=== PATIENT | male | born 1990 | race Caucasian/White ===

== ENCOUNTER → 2018-02-19 16:06 | Outpatient (CLI) | payer BC, SELFPAY ==
[2018-02-20 10:27] LABS: Alkaline Phosphatase 59 U/L (46-116); Blood Urea Nitrogen 15 mg/dL (7-18); HDL Cholesterol 27 mg/dL (27-67)
[2018-02-20 10:32] LABS: Basophils # 0.1 K/mm3 (0-0.2); Basophils % 0.6 % (0.1-2.0); Eosinophils # 0.1 K/mm3 (0.0-0.4); Eosinophils % 1.6 % (0.1-12.0); Hemoglobin 15.8 g/dL (14.1-18.0); Lymphocytes # 2.9 K/mm3 (0.7-4.5); Lymphocytes % 32.6 % (10-50); Mean Corpuscular HGB Conc 32.2 g/dL (31.8-35.4); Mean Corpuscular Hemoglobin 29.1 pg (27.0-31.2); Mean Corpuscular Volume 90.3 fl (80-94); Mean Platelet Volume 9.3 fl (7.4-10.4); Monocytes # 0.5 K/mm3 (0.1-1.0); Monocytes % 5.6 % (1.7-9.3); Neutrophils # 5.3 K/mm3 (1.8-7.8); Neutrophils % 59.6 % (37.0-80.0); Platelet Count 317 K/mm3 (142-424); Red Blood Count 5.42 M/mm3 (4.60-6.20); Red Cell Distribution Width 13.7 % (11.5-17.5); White Blood Count 8.9 K/mm3 (4.8-10.8)
[2018-02-20 11:04] LABS: Alanine Aminotransferase 95 U/L (12-78); Albumin Level 4.1 gm/dL (3.4-5.0); Albumin/Globulin Ratio 1.1 (1.1-1.8); Anion Gap 15.1 mEq/L (5-15); Bilirubin,Total 0.3 mg/dL (0.2-1.0); Carbon Dioxide 28 mmol/L (21.0-32.0); Chloride 101 mmol/L (98-107); Chol/HDL Ratio 9.1 (1-3.5); Cholesterol 246 mg/dL (140-200); Creatinine,Serum 1.03 mg/dL (0.70-1.30); Estimated Glomerular Filt Rate 85 ml/min (>60); GFR (African American) 103 ML/MIN (>60); Globulin 3.6 gm/dl (1.3-3.2); Glucose 93 mg/dL (74-106); Potassium 5.1 mmoL/L (3.5-5.1); Sodium 139 mmol/L (136-145); T4 (Thyroxine) 5.3 ug/dl (4.7-13.3); Thyroid Stimulating Hormone 1.42 uIU/ml (0.358-3.740); Total Protein,Serum 7.7 gm/dL (6.4-8.2)
[2018-02-20 11:22] LABS: Aspartate Amino Transferase 33 U/L (15-37)
[2018-02-20 11:28] LABS: Triglycerides 690 mg/dL (30-200)
== END ==
PROVIDERS: Visit Provider Nurse Practitioner Family
DX: H92.09 Otalgia, unspecified ear (principal)
CPT/HCPCS: 80053; 80061; 84436; 84443; 85025

== ENCOUNTER → 2018-03-22 16:13 | Outpatient (CLI) | payer BC, SELFPAY ==
[2018-03-22 17:49] LABS: Chol/HDL Ratio 5.7 (1-3.5); Cholesterol 234 mg/dL (140-200); HDL Cholesterol 41 mg/dL (27-67); LDL Cholesterol 178 mg/dL (0-130); Triglycerides 75 mg/dL (30-200); VLDL Cholesterol 15 mg/dL (0-40)
[2018-03-22 19:43] LABS: Hemoglobin A1C 5.5 % (0.0-7.0)
[2018-03-24 07:20] LABS: Hep A Ab, IgM Negative (Negative); Hepatitis B Core Antibody IgM Negative (Negative); Hepatitis B Surface Antigen Negative (Negative)
[2018-03-24 12:35] LABS: Hepatitis C Antibody 0.1 s/co ratio (0.0-0.9)
== END ==
PROVIDERS: Visit Provider Nurse Practitioner Family
DX: R53.83 Other fatigue (principal); R74.0 Nonspecific elevation of levels of transaminase and lactic acid dehydrogenase [LDH]; E78.2 Mixed hyperlipidemia
CPT/HCPCS: 36415; 80061; 80074; 83036

== ENCOUNTER → 2018-10-30 15:17 | Outpatient (POV) | payer BC, SELFPAY | PROVIDERS: Visit Provider Dermatology | DX: Z00.00 Encounter for general adult medical examination without abnormal findings (principal) ==

== ENCOUNTER → 2019-09-24 15:19 | Outpatient (POV) | payer BC, MEDICAID, SELFPAY | PROVIDERS: PCP Nurse Practitioner Family; Visit Provider Dermatology | DX: Z00.00 Encounter for general adult medical examination without abnormal findings (principal) ==

== ENCOUNTER → 2019-09-27 10:12 | Outpatient (CLI) | payer BC, MEDICAID, SELFPAY ==
[2019-09-27 14:29] LABS: Coronavirus 19 IgG Antibody Negative (Negative); Coronavirus 19 IgM Antibody Negative (Negative)
== END ==
PROVIDERS: Visit Provider Urology
DX: Z01.818 Encounter for other preprocedural examination (principal); Z30.2 Encounter for sterilization
CPT/HCPCS: 36415; 86328

== ENCOUNTER 2019-09-30 07:18 | Day surgery (SDC) | payer BC, MEDICAID, SELFPAY ==
[2019-09-26 12:57] VITALS: BMI 28.5
[2019-09-30 07:41] VITALS: BP 142/83; PULSE 57; RESP 18; TEMP 36.8; O2SAT 99
--- NOTE | 2019-09-30 08:21 | P.PN_ITS ---
[facility] Anesthesia Checklist - Structural Data Admitted From: Home Planned Operative Procedure/s: vasectomy Consent for Planned Operative Procedure(s) Verified: Yes - Additional verifications Anesthesia Reactions: No Hx Blood Transfusions: No Blood Transfusion Reaction: No - Airway Assessment C-Spine Mobility Assessed: Yes TMJ Mobility Assessed: Yes Dentition: Good Dentition - Neurological Assessment Level of Consciousness: Awake, Alert, Appropriate - Anesthesia Plan Anesthesia Risk discussed: Yes ASA Class: I Anesthesia Type: MAC [facility] History I have reviewed the patient's past medical history: Yes Medical History: Denies:: Cancer, Diabetes Mellitus Type 1, Diabetes Mellitus Type 2, Internal Pacemaker, MRSA, Seizures *Have you ever received a pneumonia vaccine?: No *Have you received a flu vaccine this season?: No Other Medical History: Denies: Blood Transfusion Reaction Anesthesia experience/problems:: none Laterality Cases: Bilateral: Tonsillectomy Other Surgeries: Yes: No Previous Surgery, Other. No: Pacemaker Amputation: No Fractures: No - *Social History Smoking Status: Never smoker Alcohol Intake: never Substance Use Type: denies use *Occupational Status:: employed Housing: house Household Members: spouse *Travel in the last 8 weeks: None Family Hx:: Cancer
[2019-09-30 09:50] VITALS: BP 144/88; PULSE 63; RESP 18; TEMP 36.2; O2SAT 97
[2019-09-30 10:00] VITALS: BP 152/89; PULSE 59; RESP 18; O2SAT 97
[2019-09-30 10:45] VITALS: BP 169/98; PULSE 58; RESP 18; O2SAT 98
--- NOTE | 2019-09-30 10:45 | PC.NURSE ---
Spoke with Dr. Meyer concerning elevated BP, no new orders. Spoke with Valeria Watson CRNA concerning elevated BP no new orders, okay to discharge. Instructed pt to notify family MD if developed pounding NAVARRO or blurred vision. Verbalized understanding.
--- NOTE | 2019-09-30 11:16 | HMH.OPNOTE ---
Date of procedure: 09/30/19 Pre-op Diagnosis:: Sterilization Post-op Diagnosis:: Sterilization Procedure performed:: Bilateral vasectomy Surgeon:: Joni Meyer MD HUMAN RESOURCES COMPLIANCE MANAGER:: Frederick Whitney Anesthesia: MAC Estimated blood loss (mL): 3 Clinical Note:: 29-year-old white male seen recently for vasectomy consultation presents for the procedure today. Scrotal examination within normal limits and testes normal. Operative findings:: Patient taken to the operating room after informed consent was obtained. He was placed on the operating table in the supine position and monitored anesthesia care administered. Preoperative IV antibiotics administered. He was prepped and draped in the standard surgical fashion. The left vas was palpated and brought up to the midline raphae. Local anesthetic was placed under the skin and in and around the vas. Incision was then made in the midline raphae and a tenaculum was used to grasp the vas and it was brought up through the incision. The basal sheath was then incised and the vas proper was grasped and isolated from its surrounding tissue. A Hemoclip was placed distally and 2 were placed proximally. A 1 cm segment was then excised and the ends of the vasa lumen were cauterized. Hemostasis achieved at the surrounding tissue. The vas was dropped back into the left hemiscrotum and the right vas was brought up through the same incision. Local anesthetic was applied around the right vas and the identical procedure was performed as on the left. After the right vas was dropped back into the hemiscrotum a 3-0 chromic was placed in a horizontal mattress fashion. Neosporin and compression dressing applied. Patient tolerated procedure well there are no complications. Operative note:: See above Condition: stable Disposition: observation Specimens:: Vas segments were not sent Complications:: None
== END 2019-09-30 10:50 | disposition home or self-care (01) ==
LOC: OR 07:20
PROVIDERS: PCP Nurse Practitioner Family; Visit Provider Urology
PROC: (CPT 55250; principal; 2019-09-30 09:00)
DX: Z30.2 Encounter for sterilization (principal)
CPT/HCPCS: 55250; 96374

== ENCOUNTER → 2020-09-14 08:33 | Outpatient (POV) | payer BC, MEDICAID, SELFPAY | PROVIDERS: Visit Provider Otolaryngology | DX: Z00.00 Encounter for general adult medical examination without abnormal findings (principal) ==

== ENCOUNTER → 2020-09-21 08:17 | Outpatient (CLI) | payer BC, SELFPAY | PROVIDERS: Visit Provider Otolaryngology | DX: Z20.822 Contact with and (suspected) exposure to COVID-19 (principal) | CPT/HCPCS: U0003 ==

== ENCOUNTER 2020-09-22 06:44 | Day surgery (SDC) | payer BC, SELFPAY ==
[2020-09-17 15:23] VITALS: BMI 28.5
[2020-09-22] VITALS (10 sets, daily range): BP systolic 119–142; BP diastolic 71–85; PULSE 49–60; RESP 12–18; TEMP 35.7–36.6; O2SAT 92–100
--- NOTE | 2020-09-22 07:37 | HMH.ANESCL ---
[facility] Anesthesia Checklist - Patient Identification Patient Identification: Arm Band - Structural Data Admitted From: Home Planned Operative Procedure/s: Left Myringtomy Tube Consent for Planned Operative Procedure(s) Verified: Yes Verified Documents: Surgical Consent, History and Physical - NPO Status Verified Time NPO: 00:00 - Additional verifications Anesthesia Reactions: No Hx Blood Transfusions: No Blood Transfusion Reaction: No - Airway Assessment C-Spine Mobility Assessed: Yes (mp2) TMJ Mobility Assessed: Yes Dentition: Good Dentition - Neurological Assessment Level of Consciousness: Awake, Alert - Anesthesia Plan Anesthesia Risk discussed: Yes Anesthesia Plan: Verified ASA Class: I Anesthesia Type: General [facility] History I have reviewed the patient's past medical history: Yes Medical History: Denies:: Cancer, Diabetes Mellitus Type 1, Diabetes Mellitus Type 2, Internal Pacemaker, MRSA, Seizures *Have you ever received a pneumonia vaccine?: No *Have you received a flu vaccine this season?: No Other Medical History: Denies: Blood Transfusion Reaction Anesthesia experience/problems:: nac Laterality Cases: Bilateral: Myringotomy (Ear Tubes), Tonsillectomy Other Surgeries: Yes: Other. No: Pacemaker Amputation: No Fractures: No - *Social History Last grade of school completed: Advanced degree Smoking Status: Never smoker Alcohol Intake: never Substance Use Type: denies use *Occupational Status:: employed Housing: house Household Members: spouse, family *Travel in the last 8 weeks: None Family Hx:: Cancer
--- NOTE | 2020-09-22 08:33 | HMH.ANESI ---
[facility] Anesthesia Record Part I Intake, IV Amount: 500 Estimated blood loss (mL): 0 Urine output (mL): 0 Blood Pressure: 136/78 SaO2: 92 Pulse Rate: 58 Respiratory Rate: 12 Temperature: 97.8 F Patient is:: Awake, Stable Stable to PACU at:: 08:30
--- NOTE | 2020-09-22 08:48 | HMH.OPNOTE ---
Date of procedure: 09/22/20 Pre-op Diagnosis:: Left middle ear effusion Post-op Diagnosis:: Same Procedure performed:: myringotmy with left ear tube placement Surgeon:: Nusrat Ro MD AEROTRIANGULATION SPECIALIST:: Ash Ryan Anesthesia: GETA, other Estimated blood loss (mL): 1 Operative findings:: retracted left tympanic memebrane with a left middle ear effusion Operative note:: Hayes was brought to the operating room after informed consent was obtained. General anesthesia was administered and an LMA was placed. He was draped in the usual fashion for this procedure. Under microscopic otoscopy his left ear was approached. An ear speculum was placed in the external auditory canal and cerumen was evacuated with a cerumen loop. A myringotomy was then made in the anterior-inferior quadrant of the tympanic membrane and a serous effusion was suctioned from the middle ear space. A T-type tympanostomy tube was then placed in the myringotomy. Ciprodex drops were administered to the external auditory canal the ear speculum was removed and a cottonball was placed in the juliette. Patient was taken to the recovery room in good condition and there were no apparent postoperative complications Condition: stable Disposition: PACU Complications:: None apparent
--- NOTE | 2020-09-23 13:33 | P.PN_ITS ---
[facility] Anesthesia Record Part II Discharge Time: 09:00 Destination: Surgical Day Care (OP Surgery) PACU nurse assessment reviewed?: Yes Patient Condition:: Good Anesthesia Complications:: None Swallowing reflex intact?: Yes Cyanosis?: No Blood Pressure: 136/71 Pulse Rate: 53 Temperature: 97 F Mental Status: Alert & Oriented Pain level:: 0 Nausea and/or vomitting:: None Intake, IV Amount: 0
[2020-09-23 13:34] VITALS: BP 136/71; PULSE 53; TEMP 36.1
== END 2020-09-22 09:24 | disposition home or self-care (01) ==
LOC: OR 06:46
PROVIDERS: PCP Nurse Practitioner Family; Visit Provider Otolaryngology
PROC: (CPT 69436; principal; 2020-09-22 08:00)
DX: H92.02 Otalgia, left ear (principal); Z80.9 Family history of malignant neoplasm, unspecified
CPT/HCPCS: 69436

== ENCOUNTER 2020-11-04 15:54 | Emergency (ER) | payer BC, SELFPAY ==
[2020-11-04 16:33] VITALS: BP 0/0; PULSE 0; RESP 0; TEMP -17.7; TEMP 0
== END 2020-11-04 16:33 | disposition left against medical advice (07) ==
LOC: UTC 15:57
PROVIDERS: Emergency Provider Nurse Practitioner Family; PCP Nurse Practitioner Family
DX: Z53.21 Procedure and treatment not carried out due to patient leaving prior to being seen by health care provider (principal)

== ENCOUNTER 2020-11-11 17:25 | Emergency (ER) | payer BC, SELFPAY ==
--- NOTE | 2020-11-11 17:25 | ECG_ITS ---
APPROVED REPORT Exam: Resting ECG HR:75 bpm ECG Measurements Heart Rate 75 AXES OK 140 P 66 QRSd 92 QRS 55 QT 350 T 37 QTc 390 Conclusion Normal sinus rhythm Normal ECG Electronically signed by : Chau St MD 11/13/2020 10:55:24
[2020-11-11 17:32] VITALS: BP 134/85; PULSE 82; RESP 18; TEMP 36.8; O2SAT 95; BMI 27.8
--- NOTE | 2020-11-11 17:37 | HMH.EDSOB ---
ED Disposition Clinical Impression: Pneumonia due to 2019 novel coronavirus Disposition: Home, Self-Care Condition on Discharge: Fair Instructions: DI for COVID-19 (Suspected or Confirmed ) Additional Instructions: Continue to self isolate. Return to the emergency department if you feel worse. You may take [id number] ibuprofen and Tylenol for your pain. - Critical Care Critical Care Time: No Attestation: On , the high probability of a clinically significant, sudden or life threatening deterioration of the following system(s) required my full and direct attention, intervention and personal management. The time I documented below is in addition to time spent performing reported procedures but includes the following listed in this critical care notation. Medical Decision Making - Medical Records Medical records reviewed: Yes: I reviewed the patient's medical records. - Moises Inquiry Pt receiving controlled substance: No Vital Signs: 11/11/20 17:32 11/11/20 17:41 Temperature 98.2 F Temperature Source Oral Pulse Rate 72 Pulse Rate [Right Radial] 82 Respiratory Rate 18 18 Blood Pressure 142/87 H Blood Pressure [Right Arm] 134/85 Blood Pressure Mean [Right Arm] 101 Blood Pressure Source Automatic Cuff Blood Pressure Source [Right Arm] Automatic Cuff Blood Pressure Position Sitting Blood Pressure Position [Right Arm] Sitting 02 Sat by Pulse Oximetry 95 93 L Oxygen Delivery Method Room Air Room Air - Lab Data Lab results reviewed: Yes: I reviewed the patient's lab results. Lab Results 11/11/20 17:30: WBC 3.4 L, RBC 4.86, Hgb 14.1, Hct 40.8 L, MCV 84.0, MCH 29.1, MCHC 34.6, RDW 13.2, Plt Count 154, MPV 9.0, Neut % (Auto) 57.3, Lymph % (Auto) 36.2, [place] % (Auto) 5.6, Eos % (Auto) 0.1, Baso % (Auto) 0.7, Neut # (Auto) 2.0, Lymph # (Auto) 1.2, [place] # (Auto) 0.2, Eos # (Auto) 0.0, Baso # (Auto) 0.0 11/11/20 17:30: Sodium 138, Potassium 4.0, Chloride 101, Carbon Dioxide 27, Anion Gap 14.0, BUN 14, Creatinine 0.80, Estimated Creat Clear 174, Estimated GFR 112, Est GFR ( Amer) 136, Glucose 124 H, Calcium 8.4, Troponin I < 0.01 Result diagrams: 11/11/20 17:30 11/11/20 17:30 Orders (Tests/Meds): ED MEDICATIONS Discontinued Medications Generic Name Dose Route Start Last Admin Trade Name Yovanny PRN Reason Stop Dose Admin Aspirin 324 mg 11/11/20 17:39 11/11/20 17:45 Aspirin 81mg Chewable Tablet PO 11/11/20 17:40 324 mg ONCE ONE Administration Ketorolac Tromethamine 30 mg 11/11/20 17:41 11/11/20 17:45 Ketorolac 30mg/Ml Vial IV 11/11/20 17:42 30 mg ONCE ONE Administration ORDERS Category Date Time Status Troponin I Q3H Lab 11/11/20 20:45 Ordered Troponin I Q3H Lab 11/11/20 23:45 Ordered - Radiology Data #1 Image(s): Chest Image Reviewed: Yes I reviewed the patient's radiology image, Yes I have reviewed radiologist's interpretation Preliminary Findings: Abnormal (Diffuse infiltrates consistent with infection) - ECG Data Tracing #1 I reviewed this ECG and interpreted as documented below: The patient is EKG was done at 1726. It shows a normal sinus rhythm at 75 bpm. It is a normal EKG. It does not show any ischemia or dysrhythmia. The axes are normal. - HUNTER Score for Non-Stemi Age of Patient: 30-39 years old Heart Rate: 70-89 bpm Systolic Blood Pressure: 120-139 mmhg Serum Creatinine: 0.80-1.19 mg/dl CHF Killip Class: I-No CHF Other Risk Factors: None Non-Stemi Risk Score: 58 Medical Decision Narrative: The patient's work-up in the emergency department is consistent with the known diagnosis of COVID-19. The patient is not hypoxic at this time. He does not meet admission criteria. His chest pain is reproducible. His díaz score is low. His Wells score for pulmonary embolus is also low. I feel that the patient can be safely discharged at this time with instructions to return to the emergency department if he worsens in any way
--- NOTE | 2020-11-11 17:40 | XR_ITS ---
PROCEDURE INFORMATION: Exam: XR Chest Exam date and time: 11/11/2020 5:40 PM Age: 30 years old Clinical indication: Patient HX: Chest pain; Shortness of breath; Non-smoker TECHNIQUE: Imaging protocol: XR of the chest. Views: 1 view. COMPARISON: No relevant prior studies available. FINDINGS: Lungs: Faint bibasilar opacities Pleural spaces: Unremarkable. No pleural effusion. No pneumothorax. Heart/Mediastinum: Unremarkable. No cardiomegaly. Bones/joints: Unremarkable. IMPRESSION: Faint bibasilar opacities compatible with infection
[2020-11-11 17:41] VITALS: BP 142/87; PULSE 72; RESP 18; O2SAT 93
--- NOTE | 2020-11-11 17:47 | PC.NURSE ---
XRAY BEING DONE
[2020-11-11 17:51] LABS: Chloride 101 mmol/L (98-107); Sodium 138 mmol/L (136-145)
[2020-11-11 17:52] LABS: Basophils % 0.7 % (0.1-2.0); Eosinophils % 0.1 % (0.1-12.0); Hematocrit 40.8 % (42.0-52.0); Hemoglobin 14.1 g/dL (14.1-18.0); Lymphocytes # 1.2 K/mm3 (0.7-4.5); Lymphocytes % 36.2 % (10-50); Mean Corpuscular HGB Conc 34.6 g/dL (31.8-35.4); Mean Corpuscular Hemoglobin 29.1 pg (27.0-31.2); Monocytes # 0.2 K/mm3 (0.1-1.0); Monocytes % 5.6 % (1.7-9.3); Neutrophils % 57.3 % (37.0-80.0); Platelet Count 154 K/mm3 (142-424); Red Blood Count 4.86 M/mm3 (4.60-6.20); Red Cell Distribution Width 13.2 % (11.5-17.5); White Blood Count 3.4 K/mm3 (4.8-10.8)
[2020-11-11 17:55] LABS: Blood Urea Nitrogen 14 mg/dl (9-20); Calcium 8.4 mg/dl (8.4-10.2); Carbon Dioxide 27 mmol/L (22.0-30.0); Creatinine Clearance Estimated 174 mL/min (50-200); Estimated Glomerular Filt Rate 112 ml/min (>60); GFR (African American) 136 ML/MIN (>60); Glucose 124 mg/dl (74-100)
[2020-11-11 18:17] LABS: Troponin I < 0.01 ng/ml (0.00-0.034)
[2020-11-11 18:46] VITALS: BP 128/77; PULSE 71; RESP 16; TEMP 36.8; O2SAT 93
== END 2020-11-11 18:48 | disposition home or self-care (01) ==
PROVIDERS: Emergency Provider Emergency Medicine
DX: U07.1 COVID-19 (principal); J12.82 Pneumonia due to coronavirus disease 2019
CPT/HCPCS: 71045; 80048; 84484; 85025; 93005; 96374; 99283

== ENCOUNTER 2020-11-16 09:09 | Emergency (ER) | payer BC, SELFPAY ==
[2020-11-16 09:10] VITALS: BP 109/68; PULSE 71; RESP 26; TEMP 36.9; O2SAT 97; BMI 26.4
--- NOTE | 2020-11-16 09:40 | HMH.EDUTC ---
[facility] [place] Impression: Pneumonia due to 2019 novel coronavirus Disposition: Home, Self-Care Condition on Discharge: Good Instructions: Doxycycline, Methylprednisolone Additional Instructions: ? Start antibiotic today. Be sure to complete entire prescription even if feeling better ? Monitor temp. Tylenol every 4 hours as needed and / or ibuprofen every 6 hours as needed ( As long as your primary care physician has told you that it ok to take both. For fever/aches/pains ER if no less than 101 despite Tylenol or Motrin ? Humidifier/vaporizer or hot steamy shower ? Mucinex for your cough and congestion Be sure to drink lots of water. Insurance may not cover a prescriptions for mucinex. *Start steroid today. Helps with inflammation therefore, cough and wheezing. Follow directions on the package. Reviewed side effects. Patient reports taking them before. Follow up IMMEDIATELY for new or worsening of symptoms OR no noticeable improvement over the next 48-72 hours. 911 immediately for any life threatening symptoms such as chest pain or difficulty breathing Prescriptions: Doxycycline Monohydrate [Doxycycline [place] 100mg Tab] 100 mg PO Q12 7 Days #14 tab Transmission Status: Pending to [employer] # methylPREDNISolone [Medrol 4mg tab] 4 mg PO DIRECTED #21 tab Transmission Status: Pending to [employer] # guaiFENesin [Mucinex 600mg tablet] 1 - 2 tab PO Q12H PRN #20 tab PRN Reason: Congestion Transmission Status: Pending to [employer] # Referrals: Ras Gutierrez APRN [Primary Care Provider] - As needed Time of Disposition: 09:55 Medical Decision Making - Moises Inquiry Pt receiving controlled substance: No Moises was queried for this patient: No Vital Signs: 11/16/20 09:10 Temperature 98.4 F Temperature Source Oral Pulse Rate [Right Brachial] 71 Respiratory Rate 26 H Blood Pressure [Right Arm] 109/68 L Blood Pressure Mean [Right Arm] 81 Blood Pressure Source [Right Arm] Automatic Cuff Blood Pressure Position [Right Arm] Sitting 02 Sat by Pulse Oximetry 97 Oxygen Delivery Method Room Air Medical Decision Narrative: Discussed repeat CXR with patient and transfer to the ED for further evaluation and treatment and patient declined both States that SOA is worse with excertion and he has been blowing out bloody dark mucous from his nose and was concerned he may have infection on top of COVID Patient educated on risks and still declined transfer State just finished a Zpack and it hasnt helped much [facility] [place] General Stated complaint: lisa rizo Time Seen by Provider: 11/16/20 09:41 Mode of Arrival: Ambulatory Source of Information: Patient Limitations: No Limitations Description of Symptoms (Recalled from Triage Doc. by RN): PATIENT TEST POSITIVE FOR COVID ON 11/04. C/O SOA THAT HAS GOTTEN WORSE OVER THE PAST 2 DAYS. HEENT Symptoms (Recalled from RN notes): No Resp Symptoms (Recalled from RN notes): Yes Skin Symptoms (Recalled from RN notes): No MS Symptoms (Recalled from RN notes): No Functional Status (Recalled from RN notes): WNL - History of Present Illness Provider Complaint: Patient states that he was dx with COVID on 11/04 and was seen in the ED on 11/11 with SOA States that he has continued to have SOA on and off which is worse in the mornings, bloody sinus mucous and pressure States that today he come in to see if he could get something states that he feels like it is starting to get worse - Related Data Previous Rx's Medication Instructions Recorded azithromycin 250 mg tablet See Rx Instructions PO .COMPLEX #6 11/12/20 tab Doxycycline Monohydrate 100 mg PO Q12 7 Days #14 tab 11/16/20 [Doxycycline [place] 100mg Tab] guaiFENesin [Mucinex 600mg tablet] 1 - 2 tab PO Q12H PRN #20 tab 11/16/20 methylPREDNISolone [Medrol 4mg 4 mg PO DIRECTED #21 tab 11/16/20 tab] Allergies Allergy/AdvReac Type Severity Reaction Status Jose E
[2020-11-16 09:59] VITALS: BP 109/68; PULSE 71; RESP 22; TEMP 36.9; O2SAT 97
== END 2020-11-16 10:04 | disposition home or self-care (01) ==
PROVIDERS: Emergency Provider Nurse Practitioner; PCP Nurse Practitioner Family
DX: U07.1 COVID-19 (principal); J12.82 Pneumonia due to coronavirus disease 2019
CPT/HCPCS: 99202; G0463

== ENCOUNTER → 2021-04-28 16:20 | Outpatient (CLI) | payer BC, SELFPAY ==
--- NOTE | 2021-04-28 16:23 | XR_ITS ---
PROCEDURE INFORMATION: Exam: XR Left Foot Complete; Alignment Exam date and time: 04/28/2021 4:23 PM Age: 31 years old Clinical indication: Pain; Foot; Left TECHNIQUE: Imaging protocol: XR Left foot. Views: 3 or more views. COMPARISON: No relevant prior studies available. FINDINGS: Bones/joints: Small marginal osteophytes and degenerative changes involving the 1st MTP joint. Soft tissues: Normal. IMPRESSION: Small marginal osteophytes and degenerative changes involving the 1st MTP joint.
--- NOTE | 2021-04-28 16:23 | XR_ITS ---
PROCEDURE INFORMATION: Exam: XR Right Foot Complete; Alignment Exam date and time: 04/28/2021 4:23 PM Age: 31 years old Clinical indication: Pain; Foot; Right TECHNIQUE: Imaging protocol: XR Right foot. Views: 3 or more views. COMPARISON: No relevant prior studies available. FINDINGS: Bones/joints: Small marginal osteophytes and degenerative changes involving the first MTP joint. Small enthesophytes involving the calcaneus at the Achilles tendon insertion. Soft tissues: Normal. IMPRESSION: Small marginal osteophytes and degenerative changes involving the first MTP joint.
== END ==
PROVIDERS: PCP Nurse Practitioner Family; Visit Provider Podiatrist
DX: M79.672 Pain in left foot (principal); M79.671 Pain in right foot
CPT/HCPCS: 73630

== ENCOUNTER 2023-04-30 19:43 | Emergency (ER) | payer BC, SELFPAY ==
--- NOTE | 2023-04-30 19:51 | ED_ITS ---
I was consulted by the MAXX, and we discussed the complexity of the problems being addressed. I approved the treatment and management plan for this patient's care in the emergency department, thus performing a substantive portion of the medical decision making. Cayden Ervin MD Discharge Plan Disposition Patient Disposition: Home, Self-Care Condition: Good Prescriptions Prescriptions: New cephalexin 500 mg capsule 500 mg PO BID 5 Days Qty: 10 0RF Referrals Follow up/Referrals: Ras Gutierrez APRN [Primary Care Provider] - See instructions Eddie Mejia DO [Staff Physician] - See instructions Activity Restrictions/Add. Instructions Additional Instructions/Restrictions: Please keep wound dry and covered with a nonocclusive dressing and a finger splint. May with wash and soap and water tomorrow. Please call and make an appointment for follow-up with Dr. Mejia of orthopedics in the a.m. for 7 days for reevaluation and repeat imaging. Please return for any new symptoms or complications. Sutures may come out in 10 to 14 days. Antibiotics have been called in to your pharmacy. Instructions Patient Instructions: DI for Laceration Repair Discharge ED Provider: Cayden Ervin General Adult HPI General Chief complaint: Wound/Laceration Stated complaint: [id number] index finger LT hand lac Time Seen by Provider: 04/30/23 19:44 History of Present Illness HPI narrative: Laceration to dorsum of left index finger. Patient was using a facing grinder and accidentally touched the wheel with his index finger. Suffered a dorsal injury. Related Data Previous Rx's Medication Instructions Recorded cephalexin 500 mg capsule 500 mg PO BID 5 days #10 caps 04/30/23 Allergies Allergy/AdvReac Type Severity Reaction Status Date / Time No Known Allergies Allergy Verified 05/04/21 15:32 [facility] Disclaimer: The information contained in this section may have been updated after the patient was seen, as this information can be updated by other users. Social History Smoking Status: Never smoker alcohol intake: never substance use type: denies use current occupational status: employed Travel in the last 8 weeks: None household members: spouse and family housing: house current occupation: skilled auto brake technician current occupational exposures/hazards: No caffeine: Yes ROS Obtained: Yes Systems reviewed as appropriate & no additional complaints except as documented Physical Exam General General appearance: alert and in no apparent distress Respiratory Respiratory exam: Present normal lung sounds bilaterally Cardiovascular Cardiovascular exam: Present regular rate and normal rhythm Extremities Exam Extremities exam: Present other (Patient has a laceration to the dorsum of the index finger spanning the interphalangeal joint on the dorsum of the left index finger. Range of motion intact sensation intact patient has full extension and flexion) Neurological Exam Neurological exam: Present alert and oriented X3 Medical Decision Making Moises Inquiry Pt receiving controlled substance: No Vital Signs: 04/30/23 19:55 04/30/23 20:26 Temperature 98.0 F 98.0 F Temperature Source Oral Oral Pulse Rate 66 Pulse Rate [Left Radial] 70 Respiratory Rate 20 20 Blood Pressure 140/95 H Blood Pressure [Right Arm] 152/96 H Blood Pressure Mean [Right Arm] 114 Blood Pressure Source Automatic Cuff Blood Pressure Source [Right Arm] Automatic Cuff Blood Pressure Position Sitting Blood Pressure Position [Right Arm] Sitting 02 Sat by Pulse Oximetry 97 Oxygen Delivery Method Room Air Room Air Orders (Tests/Meds): ED MEDICATIONS Discontinued Medications Generic Name Dose Route Start Last Admin Trade Name Freq PRN Reason Stop Dose Admin Acetaminophen 1,000 mg 04/30/23 19:54 04/30/23 20:13 Acetaminophen 500mg Tab PO 04/30/23 19:55 1,000 mg ONCE ONE Administration Ketorolac Tromethamine 15 mg 04/30/23 19:54 04/30/23 20:17 Ketorolac 30mg/Ml Vial IM 04/30/23 19:55 15 mg ONCE ONE Administration Lidocaine HCl 10 ml 04/30/23 19:54 04/30/23 20:22 Lidocaine 1% 10ml Mdv SQ 04/30/23 19:55 10 ml ONCE ONE Administration Tetanus/Reduced Diphtheria/Acell Pertussis 0.5 ml 04/30/23 19:54 04/30/23 20:13 Tet/Diphth/Pert-Adult 0.5ml Syringe IM 04/30/23 19:55 0.5 ml .ONCE ONE Administration ORDERS Category Date Time Status Finger XR left minimum 2 views [XR finger LT min 2V] Exams 04/30/23 19:54 Completed Stat Medical Decision Narrative: In summary patient is a 33-year-old male who presents to the emergency department for evaluation of left finger laceration. Patient is hemodynamically stable upon arrival, afebrile. Physical exam shows a laceration spanning the IP joint of the dorsum of the left index finger. Patient is right-hand dominant. Differential diagnosis includes simple laceration versus open fracture versus ligamentous injury. Initial workup will be conducted with plain film imaging. Initial interventions include oral acetaminophen IM Toradol and tetanus shot. Initial workup reviewed by me which my informal interpretation of his plain film x-ray shows an 1 view an age-indeterminate very small avulsion fracture of the radial side of the proximal aspect of the IP joint. Wound irrigated with 500 cc of normal saline and then closed with 7, 4.0 nylon sutures. Patient placed in a metal finger splint and instructions to follow-up with orthopedics in 7 days for repeat imaging. Procedures Laceration Laceration 1: Site: finger (Dorsum of left index finger) Size (cm): 3.5 Description: linear Depth: simple, single layer Local Anesthetic: lidocaine 1% Amount of anesthesia used (mL): 10 Pre-repair: wound explored, irrigated extensively and deep structures intact Skin layer closed with: nylon Size (cm): 4-0 Number of sutures: 7 Technique: simple, interrupted Critical Care Critical Care Time Critical Care Time: No
--- NOTE | 2023-04-30 19:54 | XR_ITS ---
PROCEDURE INFORMATION: Exam: XR Left Finger(s) Exam date and time: 04/30/2023 8:03 PM Age: 33 years old Clinical indication: Injury or trauma; Other: Laceration; Left; Index finger; Additional info: Laceration to left index finger TECHNIQUE: Imaging protocol: Radiologic exam of the left fingers. Views: Minimum 2 views. COMPARISON: No relevant prior studies available. FINDINGS: Bones/joints: Osseous structures are intact. No fracture or malalignment. Visualized joint surfaces are preserved. Soft tissues: Unremarkable. IMPRESSION: Negative exam. No acute bony abnormalities.
[2023-04-30 19:55] VITALS: BP 152/96; PULSE 70; RESP 20; TEMP 36.7; O2SAT 97; BMI 29.8
[2023-04-30] MEDS: TET/DIPHTH/PERT-ADULT 0.5ML SYRINGE 0.5 ML IM (20:13)
[2023-04-30] MEDS: ACETAMINOPHEN 500MG TAB 1000 MG PO (20:13)
[2023-04-30] MEDS: KETOROLAC 30MG/ML VIAL 15 MG IM (20:17)
[2023-04-30] MEDS: LIDOCAINE 1% 10ML MDV 10 ML SQ (20:22)
[2023-04-30 20:26] VITALS: BP 140/95; PULSE 66; RESP 20; TEMP 36.7; O2SAT 98
--- NOTE | 2023-04-30 20:28 | PC.NURSE ---
GREGORIO Roach used a 10mL syringe full of lidocaine to perform a nerve block for a L index finger injury to this patient in order to suture the injury, upon scanning the medication the option for L index finger was not indicated, so a note was indicated.
== END 2023-04-30 21:17 | disposition home or self-care (01) ==
PROVIDERS: Emergency Provider Emergency Medicine; PCP Nurse Practitioner Family
DX: S61.211A Laceration without foreign body of left index finger without damage to nail, initial encounter (principal); W31.89XA Contact with other specified machinery, initial encounter
CPT/HCPCS: 12002; 73140; 90471; 90715; 96372; 99283

== ENCOUNTER 2023-05-16 19:01 | Outpatient (CLI) | payer BC, SELFPAY ==
[2023-05-16 18:26] LABS: Basophils # 0.1 K/mm3 (0-0.2); Basophils % 0.7 % (0.1-2.0); Eosinophils # 0.1 K/mm3 (0.0-0.4); Eosinophils % 1.2 % (0.1-12.0); Hematocrit 47.5 % (42.0-52.0); Hemoglobin 15.7 g/dL (14.1-18.0); Lymphocytes # 3.1 K/mm3 (0.7-4.5); Lymphocytes % 30.4 % (10-50); Mean Corpuscular HGB Conc 33.2 g/dL (31.8-35.4); Mean Corpuscular Hemoglobin 29.6 pg (27.0-31.2); Mean Corpuscular Volume 89.2 fl (80-94); Mean Platelet Volume 9.2 fl (7.4-10.4); Monocytes # 0.5 K/mm3 (0.1-1.0); Monocytes % 4.4 % (1.7-9.3); Neutrophils # 6.5 K/mm3 (1.8-7.8); Neutrophils % 63.3 % (37.0-80.0); Platelet Count 243 K/mm3 (142-424); Red Blood Count 5.32 M/mm3 (4.60-6.20); Red Cell Distribution Width 13.5 % (11.5-17.5); White Blood Count 10.3 K/mm3 (4.8-10.8)
[2023-05-16 18:45] LABS: Hemoglobin A1C 5.5 % (4.0-6.0)
[2023-05-16 19:32] LABS: Chol/HDL Ratio 7.2 (1-3.5); Cholesterol 308 mg/dl (140-200); HDL Cholesterol 43 mg/dl (40-60); Triglycerides 107 mg/dl (30-150); VLDL Cholesterol 21 mg/dL (0-40)
[2023-05-16 19:44] LABS: Direct LDL Cholesterol 210.16 mg/dL (100-129)
== END 2023-05-16 23:59 ==
LOC: LAB.DROPOF 19:01
PROVIDERS: PCP Internal Medicine; Visit Provider Internal Medicine
DX: Z13.220 Encounter for screening for lipoid disorders (principal); Z13.1 Encounter for screening for diabetes mellitus
CPT/HCPCS: 80061; 83036; 85025

== ENCOUNTER 2023-10-16 17:34 | Emergency (ER) | payer BC, SELFPAY ==
[2023-10-16 17:45] VITALS: BP 130/82; PULSE 70; RESP 20; TEMP 36.9; O2SAT 99; BMI 30.2
--- NOTE | 2023-10-16 18:09 | EXP.UTC ---
Discharge Plan Disposition Patient Disposition: Home, Self-Care Condition: Good Prescriptions Prescriptions: New amoxicillin 875 mg tablet 875 mg PO Q12H Qty: 20 0RF ciprofloxacin-dexamethasone 0.3-0.1 % drops,suspension 4 drp otic (ear) BID 7 Days Qty: 15 0RF Rx Instructions: apply 4 drops in both ears twice daily for 7 days Referrals Follow up/Referrals: Arik Chris DO [Primary Care Provider] - See instructions Activity Restrictions/Add. Instructions Additional Instructions/Restrictions: Take medications as prescribed and use ear drops as prescribed Over the counter Motrin and/or Tylenol for pain and fever Return if needed Straight to ER if any life threatening symptoms Clinical Impressions Clinical Impression: Otitis media, Otitis externa Instructions Patient Instructions: Amoxicillin, Ciprofloxacin and Dexamethasone Otic, How to Use Ear Drops Print Language Print Language: Lithuanian Discharge ED Provider[place] Geni Tom [facility] [place] General Stated complaint: pain/swelling in both ears Mode of Arrival: Ambulatory Source of Information: Patient Limitations: No Limitations Time Seen by Provider: 10/16/23 18:09 Description of Symptoms (Recalled from Triage Doc. by RN): PATIENT C/O PAIN AND PRESSURE TO BILATERAL EARS THAT STARTED YESTERDAY MORNING HEENT Symptoms (Recalled from RN notes): Yes Resp Symptoms (Recalled from RN notes): No Skin Symptoms (Recalled from RN notes): No MS Symptoms (Recalled from RN notes): No Functional Status (Recalled from RN notes): WNL History of Present Illness Provider Complaint: Patient states that he has been having bilateral pain and pressure in both ears and worse in the left with it feeling tender to the touch and swollen States this evening it was bothering him worse so he came in to get it checked Related Data Previous Rx's ?Medication ?Instructions ?Recorded amoxicillin 875 mg tablet 875 mg PO Q12H #20 tabs 10/16/23 ciprofloxacin 0.3 %-dexamethasone 4 drp otic (ear) BID 7 days #15 mL 10/16/23 0.1 % ear drops,suspension Allergies Allergy/AdvReac Type Severity Reaction Status Date / Time No Known Allergies Allergy Verified 05/16/23 15:42 Worker's Comp Is this a Worker's Comp case?: No [facility] Disclaimer: The information contained in this section may have been updated after the patient was seen, as this information can be updated by other users. Medical History (Updated 10/16/23 @ 18:17 by Geni Tom APRN) Encounter for vasectomy Surgical History (Updated 10/16/23 @ 17:52 by Claudia Rodriguez RN) History of tympanostomy tube placement Social History Smoking Status: Never smoker alcohol intake: never substance use type: denies use current occupational status: employed Travel in the last 8 weeks: None household members: spouse and family housing: house current occupation: skilled filling technician current occupational exposures/hazards: No caffeine: Yes ROS Obtained: Yes All systems reviewed & no additional complaints except as documented and Yes Systems reviewed as appropriate & no additional complaints except as documented Constitutional Constitutional: Reports system reviewed and no additional complaints, except as documented and Reports as per HPI ENT Ears, Nose, Mouth, and Throat: Reports system reviewed and no additional complaints, except as documented, Reports as per HPI and Reports otalgia Cardiovascular Cardiovascular: Reports system reviewed and no additional complaints, except as documented and Reports as per HPI Respiratory Respiratory: Reports system reviewed and no additional complaints, except as documented and Reports as per HPI Gastrointestinal Gastrointestingal: Reports system reviewed and no additional complaints, except as documented and as per HPI Physical Exam General General appearance: alert and in no apparent distress ENT ENT exam: Present mucous membranes moist Expanded ENT Exam External ear exam: Present pain with movement (left) and external tenderness (left) TM/Canal exam: Left TM: loss of landmarks and canal discharge and Right TM: erythema and bulging Respiratory Respiratory exam: Present normal lung sounds bilaterally and wheezes; Absent respiratory distress Cardiovascular Cardiovascular exam: Present regular rate, normal rhythm and normal heart sounds Neurological Exam Neurological exam: Present alert, oriented X3 and normal gait Medical Decision Making Moises Inquiry Pt receiving controlled substance: No Moises was queried for this patient: No Vital Signs: 10/16/23 17:45 Temperature 98.5 F Temperature Source Oral Pulse Rate [Left Brachial] 70 Respiratory Rate 20 Blood Pressure [Left Arm] 130/82 Blood Pressure Mean [Left Arm] 98 Blood Pressure Source [Left Arm] Automatic Cuff Blood Pressure Position [Left Arm] Sitting 02 Sat by Pulse Oximetry 99 Oxygen Delivery Method Room Air
[2023-10-16 18:19] VITALS: BP 130/82; PULSE 70; RESP 20; TEMP 36.9; O2SAT 99
== END 2023-10-16 18:21 | disposition home or self-care (01) ==
PROVIDERS: Emergency Provider Nurse Practitioner; PCP Internal Medicine
DX: H66.93 Otitis media, unspecified, bilateral (principal); H60.93 Unspecified otitis externa, bilateral; H92.03 Otalgia, bilateral
CPT/HCPCS: 99212; 99214; G0463